=== PATIENT | male | born 1945 | race Caucasian/White ===

== ENCOUNTER 2017-04-02 14:06 | Emergency (ER) | payer OTHER ==
[2017-04-02 14:57] LABS: BILIRUBIN NEGATIVE (NEGATIVE); BLOOD NEGATIVE Ery/uL (NEGATIVE); CLARITY CLEAR (CLEAR); COLOR YELLOW (YELLOW); GLUCOSE (U) NORMAL (NORMAL); KETONE (U) 2+ (MODERATE) mg/dL (NEGATIVE); LEUKOCYTES NEGATIVE Leu/uL (NEGATIVE); NITRITE NEGATIVE (NEGATIVE); PROTEIN NEGATIVE (NEGATIVE); SPECIFIC GRAVITY 1.025 (1.001-1.030); UROBILINOGEN 0.2 mg/dL (0.2-1.0)
[2017-04-02 14:58] LABS: INR 1.06 (0.9-1.2); PROTHROMBIN TIME 12.9 SECONDS (11.4-13.2); PTT 28.5 SECONDS (24.3-32.1)
[2017-04-02 15:04] LABS: ALBUMIN 4.3 g/dL (3.4-4.8); BILIRUBIN - TOTAL 0.6 mg/dL (0.1-1.0); CREATININE 0.8 mg/dL (0.7-1.2); POTASSIUM 4.2 mmol/L (3.5-5.1); TOTAL PROTEIN 7.3 g/dL (6.4-8.3)
[2017-04-02 15:05] LABS: BASOPHIL 0.1 % (0-2); EOSINOPHIL 0.3 % (0-7); HGB 14.4 g/dl (13.2-18.0); LYMPHOCYTE 12.1 % (15-48); MCH 30.5 pg (25.0-31.0); MCHC 35.1 g/dL (32.0-36.0); MCV 86.9 fL (78.0-100.0); MPV 11.9 fL (6.0-9.5); NEUTROPHIL 85.5 % (41-80); PLT 200 K/uL (150-400); RBC 4.72 M/uL (4.70-6.00); RDW 13.1 % (11.5-14.0); WBC 7.9 K/uL (4.0-10.5)
== END 2017-04-02 16:40 | disposition other institution (70) ==
LOC: FER 14:06
PROVIDERS: Emergency Medicine
DX: R41.0 Disorientation, unspecified (principal); R41.3 Other amnesia; I10 Essential (primary) hypertension; K21.9 Gastro-esophageal reflux disease without esophagitis; Z87.891 Personal history of nicotine dependence; Z79.899 Other long term (current) drug therapy
CPT/HCPCS: 36415; 70450; 71010; 80053; 81003; 84484; 85025; 85610; 85730; 93005